=== PATIENT | male | born 1965 | race Caucasian/White ===

== ENCOUNTER 2025-03-12 18:07 | Inpatient (IN) | payer OTHER ==
[~2025-03-12] VITALS: Ht 177.8 cm; Wt 119.4 kg
[~2025-03-12 18:07] MED LIST: KETO10TA2 PO; ONDA-243 PO; OXYC-145 PO; TAMS-55 PO
[2025-03-12 19:31] LABS: BASOPHILS % (AUTO) 0.2 % (0-1); EOSINOPHILS % (AUTO) 0.1 % (0-6); HEMOGLOBIN 14.1 g/dl (14.0-17.9); LYMPHOCYTES # (AUTO) 0.7 X10'3 (1.1-4.8); LYMPHOCYTES % (AUTO) 6.2 % (21-51); MEAN CORPUSCULAR HEMOGLOBIN 29.9 PG (27.0-31.0); MEAN CORPUSCULAR HGB CONC 34.5 g/dL (33.0-36.5); MEAN CORPUSCULAR VOLUME 86.7 FL (78-98); MEAN PLATELET VOLUME 7.1 FL (7.4-10.4); MONOCYTES # (AUTO) 1.1 X10'3 (0-0.9); MONOCYTES % (AUTO) 9.4 % (2-12); NEUTROPHILS # (AUTO) 9.7 X10'3 (1.8-7.7); NEUTROPHILS % (AUTO) 84.1 % (42-75); PLATELET COUNT 255 X10'3 (140-440); RED BLOOD COUNT 4.73 X10'6 (4.70-6.10); WHITE BLOOD COUNT 11.6 X10'3 (4.5-11.0)
[2025-03-12 19:45] LABS: ALANINE AMINOTRANSFERASE 38 U/L (12-78); ALBUMIN/GLOBULIN RATIO 1.2 (1.1-1.5); ALKALINE PHOSPHATASE 96 IU/L (46-116); ANION GAP 9 (8-16); ASPARTATE AMINO TRANSFERASE 33 U/L (10-37); BILIRUBIN,TOTAL 0.7 MG/DL (0.1-1.0); BLOOD UREA NITROGEN 25 MG/DL (7-18); BUN/CREATININE RATIO 13.3 (10.0-20.0); CALCIUM 9.3 MG/DL (8.5-10.1); CHLORIDE 101 MMOL/L (99-107); CREATININE 1.88 MG/DL (0.60-1.10); GLUCOSE 115 MG/DL (70-104); LIPASE 21 U/L (16-77); POTASSIUM 4.6 MMOL/L (3.5-5.1); SODIUM 137 MMOL/L (135-145); TOTAL CARBON DIOXIDE 26.7 MMOL/L (24-32); TOTAL PROTEIN 7.3 G/DL (6.4-8.2); eCRCL 43 ML/MIN; eGFR 37 ML/MIN
--- NOTE | 2025-03-12 20:53 | Physician Documentation ---
History of Present Illness ~ Chief Complaint: Urinary Retention Stated Complaint: KIDNEY STONES Time Seen by MD: 22:10 OK to notify your PCP?: Yes Source: patient Mode of Arrival: POV Exam Limitations: no limitations HPI 59-year-old male presents with bilateral kidney stones. He states that he was seen at a hospital in [place] a few days ago and diagnosed with bilateral kidney stones 5 mm each. He has had a history of kidney stones in his usually able to pass them within 2 days but now it has been 4 days. He no longer is having pain up in his kidneys but he is experiencing some fevers and the pain is now wrapped around to his lower abdomen. He has increased his water intake and has been taking Flomax, and oxycodone but now feels like he is not able to urinate as well it is more like a few dribbles then a stream. He is feeling some bladder fullness and pressure as well. He denies any vomiting or nausea. History below obtained from Dr. Christensen: Chief Complaint: Left groin pain, unable to urinate Caveat: None Independent Historians: History of Present Illness: Patient is a 59-year-old man with a history of kidney stones. Patient started having some lower left and left groin pain Friday. he went to the emergency department in [place] he had a CT scan stating that he had a 5 mm stone in his mid ureter. He was placed on Flomax. Today pain returned and got worse in the left groin. Patient has also had some suprapubic discomfort. Patient despite drinking a lot of water today and taking Flomax has not been able to urinate very well. Patient states that his stream is extremely weak and he is unable to get the urine out. Patient denies any fever. Patient denies any upper abdominal pain. Patient denies any nausea vomiting diarrhea. Review of systems: All systems were reviewed and are negative except for what is indicated in the history of present illness. Past Medical History: HTN, kidney stones Past Surgical History: None Social History: , no tobacco use, no alcohol use, no drug use Medications: Reviewed as documented Nursing Notes Allergies: Reviewed as documented in Nursing Notes Medication Reconciliation Allergies: Coded Allergies: No Known Allergies (Unverified , 02/01/24) Scheduled Dupilumab (Dupixent), 1 SYR SUBCUT Q2W, (Reported) Lisinopril* (Lisinopril*), 1 TAB PO DAILY, (Reported) Tamsulosin Hcl* (Flomax*), 1 CAP PO DAILY Discontinued Medications Ketorolac Tromethamine (Ketorolac Tromethamine), 1 TAB PO Q8H Discontinued Reason: patient no longer taking ONDANSETRON ODT 4mg tablet (Ondansetron Odt), 1 TAB PO Q6H PRN PRN for nausea/vomiting Discontinued Reason: patient no longer taking Oxycodone HCl/Acetaminophen (Percocet 5-325 mg Tablet), 1 TAB PO TID PRN PRN for kidney stone Discontinued Reason: patient no longer taking Review of Systems All Other Systems at this time: Reviewed and Negative ROS Patient denies any other acute symptoms other than above. All other systems are negative Physical Exam Vital Signs: RN Vital Signs have been reviewed: Yes, Temperature: 98.2, Source: Oral, Heart Rate: 114, Respiratory Rate: 16, BP: 157/91, Pulse Oximetry: 97, Weight: 119.400 Oxygen Flow Rate: 0 Pulse Oximetry Reflects: adequate oxygenation Physical Exam General: Alert, no distress. HEENT: No injection, moist mucous membranes. Neck: Full range of motion. Respiratory: No respiratory distress, equal chest rise and fall. Chest: No accessory muscle use. Cardiovascular: Regular rate and rhythm. Gastrointestinal: Tenderness to palpation of right and left lower quadrant Extremities: Normal range of motion, no deformity. Back: no CVAT. Neurologic: Oriented x4. Psychiatric: Normal mood and affect. Skin: Normal color, warm and dry. Physical exam below by Dr. Christensen: General Appearance: No distress HEENT: Normal OP, moist oral mucosa, PERRL, EOMI Neck: supple, normal ROM, trachea midline Pulmonary: No respiratory distress, CTA, BS equal Cardiac: RRR, no murmur, rub or gallop, GI: nondistended, soft, nontender, normal bowel sounds, no guarding, no rebound : No suprapubic tenderness, no CVA tenderness Extremities: normal ROM, no swelling, non-tender Skin: intact, dry, warm, no rashes Neuro: AAOx3, speech is clear, no focal motor weakness Psych: normal affect, good eye contact, no apparent hallucination, normal speech Progress Results/Orders Results/Orders Orders - TERRY CHRISTENSEN MD * Bladder Scan / Post Residual (03/12/25 22:17) Page Hospitalist (03/12/25 23:23) Fill Out Med Reconciliation (03/12/25 23:23) Saline Lock (03/12/25 23:23) Completed Orders - TERRY CHRISTENSEN MD Normal Saline 1000ml (Sodium Chloride 10 (03/12/25 23:25) Medications Received in ER Medications (Trade) Dose Ordered Sig/Christos Route PRN Reason Start Time Stop Time Status Last Admin Dose Admin (Toradol inj. 30mg/ml) 30 mg ONCE ONCE IM 03/12/25 20:55 03/12/25 21:00 DC 03/12/25 21:27 30 MG (sodium chloride 1000ml IV soln) 1,000 ml ONCE ONCE IVB 03/12/25 23:25 03/12/25 23:26 DC 03/13/25 00:21 1,000 ML Sodium Chloride 1,000 ml @ 100 mls/hr Q10H IV 03/12/25 23:40 03/13/25 00:25 100 MLS/HR Vital Signs 03/12/25 03/12/25 03/12/25 03/12/25 18:08 21:26 21:27 21:30 Temp 98.2 Pulse 114 94 Resp 16 16 16 B/P (MAP) 157/91 144/81 (102) Pulse Ox 97 98 O2 Flow Rate 0 03/12/25 03/12/25 23:22 23:25 Pulse 69 Resp 16 16 B/P (MAP) 146/73 (97) Pulse Ox 98 O2 Flow Rate 0 Laboratory Tests Test 03/12/25 19:17 03/12/25 23:22 White Blood Count 11.6 H Red Blood Count 4.73 Hemoglobin 14.1 Hematocrit 41.0 L Mean Corpuscular Volume 86.7 Mean Corpuscular Hemoglobin 29.9 Mean Corpuscular Hemoglobin Concent 34.5 Red Cell Distribution Width 13.0 Platelet Count 255 Mean Platelet Volume 7.1 L Neutrophils (%) (Auto) 84.1 H Lymphocytes (%) (Auto) 6.2 L Monocytes (%) (Auto) 9.4 Eosinophils (%) (Auto) 0.1 Basophils (%) (Auto) 0.2 Neutrophils # (Auto) 9.7 H Lymphocytes # (Auto) 0.7 L Monocytes # (Auto) 1.1 H Eosinophils # (Auto) 0.0 Basophils # (Auto) 0.0 CBC Comment Sodium Level 137 Potassium Level 4.6 Chloride Level 101 Carbon Dioxide Level 26.7 Anion Gap 9 Blood Urea Nitrogen 25 H Creatinine 1.88 H Estimated GFR/1.73 m2 37 BUN/Creatinine Ratio 13.3 Glucose Level 115 H Hemoglobin A1c 5.3 Calcium Level 9.3 Total Bilirubin 0.7 Aspartate Amino Transf (AST/SGOT) 33 Alanine Aminotransferase (ALT/SGPT) 38 Alkaline Phosphatase 96 Total Protein 7.3 Albumin 4.0 Globulin 3.3 Albumin/Globulin Ratio 1.2 Lipase 21 Chemistry Comments Urine Specimen Description Urinal Urine Color Yellow Urine Clarity Clear Urine pH 6.0 Urine Specific [place] 1.015 Urine Protein Negative Urine Glucose (UA) Negative Urine Ketones Trace H Urine Occult Blood Negative Urine Nitrite Negative Urine Bilirubin Negative Urine Urobilinogen 0.2 Urine Leukocyte Esterase Negative Urine Culture Indicated Not ind Volume Urine Centrifuged 10 ml Urine Comment Medical Decision Making Findings Differential diagnosis includes but is not limited to: Obstructive uropathy, kidney stones, BPH, ureteral colic, acute kidney injury CT of abdomen and pelvis without IV contrast, indication: Kidney stones Impression: 1. Moderate left hydroureteronephrosis and mild perinephric inflammatory change secondary to a partially obstructing proximal ureteral calculus. Bilateral renal atrophy and multifocal cortical scarring and nonobstructive right nephrolithiasis noted. 2. Diverticulosis coli without CT evidence of acute diverticulitis. 3. Gallbladder sludge versus vicarious contrast excretion. 4. Prostatomegaly. Laboratory data independent interpretation: CBC: Unremarkable for mild leukocytosis of 11.6 CMP: Unremarkable except for an elevated creatinine of 1.88 which is thought to be acute. BUN is elevated at 25. Urinalysis: Unremarkable, no hematuria Emergency department course/medical decision-making: Patient presents with known urolithiasis and ureteral colic. Patient has evidence of hydroureter with some hydro nephrosis and an elevated creatinine of 1.88 which is thought to be acute. Patient has an obstructive uropathy. Obstruction is on the left ureter but also he has significant prostate hypertrophy and symptomatology consistent with prostate hypertrophy. Recommend admission and urological consultation. Test results and treatment plan discussed with the patient. Consultation/communications: Hospitalist aware of the patient for admission. Departure Time of Disposition: 23:21 Disposition: 09 ADMITTED INPATIENT Impression: Primary Impression: Urolithiasis Qualified Codes: N20.1 - Calculus of ureter Additional Impressions: Obstructive uropathy Hypertrophy of prostate with urinary obstruction Condition: Fair Education Educated: Patient, Family Educated regarding: diagnosis, treatment Additional Comment Medical Screen Exam This patient recieved a medical screening examination. After reviewing the individual's medical complaints with presenting symptoms and performing an appropriate physical examination, it was determined that no immediate life- threatening emergency medical condition is present. This individual is also not a women having contractions. Signature Scribe Signature: No scribe Attestation: No scribe KAVIN HUGGINS Mar 12, 2025 20:53 TERRY CHRISTENSEN MD Mar 12, 2025 22:22
[2025-03-12] MEDS: ketorolac trometh 30MG/ML vial 30 MG/ML VIAL IM ONE (21:27)
--- NOTE | 2025-03-12 23:15 | RADIOLOGY REPORT ---
Exam: CT CT ABDOMEN PELVIS History: kidney stones Comparison Study: CT CT ABDOMEN PELVIS on DOS: 02/01/24 Technique: Multidetector spiral CT of the abdomen was performed from lung bases to pubic symphysis. I maging was performed without IV contrast. Axial, coronal and sagittal multiplanar reformats were obta ined from the axial data set by the technologist. Radiation Dose : 1. Abdomen/Pelvis: CTDIvol 36.68 mGy, DLP 1861.04 mGy*cm. Findings: Evaluation of solid organs is limited due to lack of intravenous contrast use. Lung Bases: No acute or significant lung base finding. Normal heart size. No pleural or pericardial effusion. Liver: The liver is normal in size. No focal lesions. Gallbladder and Biliary Tree: Gallbladder sludge versus vicarious contrast excretion. Spleen: Unremarkable Pancreas: The pancreas is grossly normal in appearance. Adrenal Glands: Unremarkable Kidneys: Moderate bilateral renal cortical atrophy and multifocal cortical scarring. Moderate left hy dronephrosis and dilatation of the proximal ureter secondary to a partially obstructing 6 mm ureteral calculus. Mild left perinephric inflammatory change. Right renal cysts measure up to 7.0 cm. Nonobst ructing right inferior pole pelvocaliceal calculi measure up to 6 mm. Bladder: Grossly unremarkable for degree of distention. Bowel: Small hiatal hernia. The stomach is grossly normal in appearance. Small bowel and colon are no rmal in caliber and distribution. Diverticulosis coli without CT evidence of acute diverticulitis. Th e appendix is not visualized; however, no secondary findings of acute appendicitis identified. Ascites: Absent Lymphadenopathy: No mesenteric, retroperitoneal or periportal lymphadenopathy. Abdominal Wall and Mesentery: Unremarkable. Vasculature: The visualized abdominal aorta is normal in size and caliber. Atherosclerotic vascular c alcifications. Evaluation of abdominal and pelvic vessels is limited due to lack of intravenous contr ast. Pelvic Organs: The prostate is enlarged, measuring 5.8 cm transverse. Small bilateral fat containing inguinal hernias. Musculoskeletal: No aggressive focal bony lesions, acute fractures or dislocation. IMPRESSION: 1. Moderate left hydroureteronephrosis and mild perinephric inflammatory change secondary to a partia lly obstructing proximal ureteral calculus. Bilateral renal atrophy and multifocal cortical scarring and nonobstructive right nephrolithiasis noted. 2. Diverticulosis coli without CT evidence of acute diverticulitis. 3. Gallbladder sludge versus vicarious contrast excretion. 4. Prostatomegaly. Radiation optimization: All CT scans at this facility use at least one of these dose optimization joselito hniques: automated exposure control mA and/or kV adjustment per patient size (includes targeted exam s where dose is matched to clinical indication) or iterative reconstruction.
[2025-03-12 23:33] LABS: BILIRUBIN,URINE NEGATIVE (Neg); CLARITY,URINE CLEAR (Clear); COLOR,URINE YELLOW (Yellow); GLUCOSE, URINE NEGATIVE (Neg); KETONES,URINE TRACE mg/dl (Neg); LEUKOCYTE ESTERASE ,URINE NEGATIVE (Neg); NITRITES, URINE NEGATIVE (Neg); OCCULT BLOOD,URINE NEGATIVE (Neg); PROTEIN,URINE NEGATIVE (Neg); UA COLLECTION TYPE URINAL; UROBILINOGEN,URINE 0.2 E.U/dL (0.2-1.0)
[2025-03-12] MEDS ORDERED: HYDROmorphone inj. 0.5 MG/0.5 ML DISP.SYRIN IV PRN (23:40)
[2025-03-12] MEDS ORDERED: acetaminophen 325mg tablet PO PRN (23:40)
[2025-03-12] MEDS ORDERED: ondansetron/PF 4mg/2ml inj IV PRN (23:40)
[2025-03-12] MEDS ORDERED: HYDROmorphone/PF 0.2 MG/ML SYRINGE IV PRN (23:40)
[2025-03-12] MEDS ORDERED: magnesium Cl slow-release 64mg tablet PO PRN (23:40)
[2025-03-12] MEDS ORDERED: magnesium hydroxide 30ml (MOM) UD suspension PO PRN (23:40)
[2025-03-12] MEDS ORDERED: potassium Cl 20 mEq SR tablet PO PRN ×2 (23:40)
[2025-03-12] MEDS ORDERED: potassium Cl 40MEQ/1/2NS 520ml 520 ML IV PRN (23:40)
[2025-03-12] MEDS ORDERED: morphine 2 MG/ML inj. syringe IV PRN ×2 (23:40)
[2025-03-12] MEDS ORDERED: mag hydrox/Alum hydrox/simeth 30ml oral suspension PO PRN (23:40)
[2025-03-12] MEDS ORDERED: magnesium sulf-water 2g/50mL 50 ML IV PRN (23:40)
[2025-03-12] MEDS ORDERED: magnesium sulf-water 4G/100mL 100 ML IV PRN (23:40)
[2025-03-13 00:11] LABS: HEMOGLOBIN A1C 5.3 % (4.5-6.2)
--- NOTE | 2025-03-13 00:12 | RADIOLOGY REPORT ---
CHEST RADIOGRAPH Indication: Left hydroureteronephrosis, left ureteral calculi l Technique: Single frontal view of the chest was obtained COMPARISON: None FINDINGS: Lines and Tubes: None Lungs: Clear Pleura: No effusion. No pneumothorax. Cardiomediastinal contours: Unremarkable Bones: Unremarkable IMPRESSION: 1. No acute disease.
[2025-03-13] MEDS: normal saline 1000ML IV soln IVB ONE (00:21)
[2025-03-13] MEDS: normal saline 1000ml 1,000 ML IV SCH (00:25)
[2025-03-13] MEDS: CefTRIAXone/D5W-Rocephin 1gm 50 ML IV SCH (00:28)
[2025-03-13] MEDS ORDERED: LISI40TA13 PO (00:39)
[2025-03-13] MEDS ORDERED: DUPI300S SUBCUT (00:41)
--- NOTE | 2025-03-13 01:02 | HISTORY AND PHYSICAL-Residence ---
History & Physical Providers to CC Resident Creating Document: PERCY RIVERA, VAL ~ History of Present Illness Primary Medical Doctor: Dr. Marquez Reason for Admit\Complaint: Left hydronephrosis with left ureterolithiasis, FABIANA History of Present Illness 59-year-old male presents with past medical history of hypertension, nasal polyps, recurrent nephrolithiasis presented to the ER with a chief complaints of left lumbar pain. He states that he was seen at ER, [facility] in [place] a few days ago and diagnosed with bilateral kidney stones 5 mm each along with left ureterolithiasis and he was informed at [facility] that he needs urological procedure to retrieve the stone. He does reports his abdominal pain which was started on Friday night subsided now, near left lumbar region, radiating to left groin, colicky, it was initially. This is the fourth episode of renal/urinary tract colic. He complainied of fever, decreased water intake. He do reports some bladder fullness and pressure as well. He denied nausea, vomiting, diarrhea. He received Flomax in [place] ER. His urinary stream is extremely weak and is unable to get the urine out. Today pain returned and got worse in the left groin. Patient has also had some suprapubic discomfort. Patient despite drinking a lot of water today and taking Flomax has not been able to urinate very well. Discussed code status with the patient and patient wants to be full code Allergies: Coded Allergies: No Known Allergies (Unverified , 02/01/24) Home Medications Home Medications Active Flomax* (Tamsulosin HCl) 0.4 Mg Cap.sr.24h 1 Cap PO DAILY Reported Dupixent (Dupilumab) 300 Mg/2 Ml Syringe 1 Syr SUBCUT Q2W 28 Days Lisinopril* (Lisinopril) 40 Mg Tablet 1 Tab PO DAILY 30 Days Past Medical History Past Medical History Hypertension Nasal polyp Right hip osteoarthritis (orthopedic consultation pending for total hip replacement) Recurrent nephrolithiasis Past Surgical History Surgical History Comment Bilateral sinus surgery in 2014, 2016 Past Social History Social History Comment , no tobacco use, no alcohol use, no drug use Smoking: Non-Smoker Alcohol Use: None Drug Use: Marijuana Lives with: Spouse Lives In: Home Occupation: employed ROS All Other Systems: Reviewed and Negative ROS Reviewed in full and negative except for positive pertinent as in the HPI Exam Vitals: Vital Signs Date Time Temp Pulse Resp B/P (MAP) Pulse Ox O2 Delivery O2 Flow Rate FiO2 03/13/25 00:30 85 16 127/77 (94) 96 0 03/12/25 18:08 98.2 General: General Appearance: No distress HEENT: Normal OP, moist oral mucosa, PERRL, EOMI Neck: supple, normal ROM, trachea midline Pulmonary: No respiratory distress, CTA, BS equal Cardiac: RRR, no murmur, rub or gallop, GI: nondistended, soft, mild tenderness on left CVA, normal bowel sounds, no guarding, no rebound : No suprapubic tenderness, no CVA tenderness Extremities: normal ROM, no swelling, non-tender Skin: intact, dry, warm, no rashes Neuro: AAOx3, speech is clear, no focal motor weakness Psych: normal affect, good eye contact, no apparent hallucination, normal speech Diagnostic Data Last Recorded Lab Results: 03/12/25191603/12/251916 Advance Care Planning Advanced Care planning: Add on additional 30 min Additional Plan Recurrent Nephroureterolithiasis- Left hydroureteronephrosis likely 2/2 Left proximal ureterolithiasis with obstruction Right nephrolithiasis , nonobstructive Vitals are stable and blood pressures are in 140s White blood counts are elevated with a neutrophil preponderance. Ordered lactic acid and procalcitonin we will follow up the results. Serum creatinine is elevated. Differential diagnosis reconsider are Obstructive uropathy, kidney stones, BPH, ureteral colic, acute kidney injury CT of abdomen and pelvis without IV contrast, indication: Kidney stones Impression: 1. Moderate left hydroureteronephrosis and mild perinephric inflammatory change secondary to a partially obstructing proximal ureteral calculus. Bilateral renal atrophy and multifocal cortical scarring and nonobstructive right nephrolithiasis noted. 2. Diverticulosis coli without CT evidence of acute diverticulitis. 3. Gallbladder sludge versus vicarious contrast excretion. 4. Prostatomegaly. Received 2 L of IV normal saline on currently on 100 mL/hour normal saline On ceftriaxone 1 g daily dose Strain urine orders are placed. We will consult urologist in the a.m. for obstructive uropathy and FABIANA FABIANA Serum creatinine is elevated, 1.88 Received 2 L of IV normal saline and currently patient is on 100 mL/hour normal saline We will continue to monitor CMP Hypertension Blood pressure sudden 120s We will continue to monitor blood pressure within target of less than 130 Code status: Full code Diet: NPO DVT prophylaxis: SCDs PT: Ordered Prognosis: Guarded Percy Rivera IM resident I saw the patient with Dr Houston and discussed the case with him. I agree with assessment and plan as documented Date of Service: Mar 13, 2025 Billing Provider: LIAT MESSER MD, VENKATESH, [facility] Mar 13, 2025 01:02 LIAT MESSER MD Mar 13, 2025 07:54
[2025-03-13 01:50] VITALS: RESP 18; O2SAT 99
[2025-03-13 01:59] LABS: BASOPHILS % (AUTO) 0.3 % (0-1); EOSINOPHILS % (AUTO) 0.2 % (0-6); HEMATOCRIT 38.5 % (42.0-52.0); HEMOGLOBIN 13.4 g/dl (14.0-17.9); LYMPHOCYTES # (AUTO) 0.9 X10'3 (1.1-4.8); LYMPHOCYTES % (AUTO) 8.2 % (21-51); MEAN CORPUSCULAR HGB CONC 34.9 g/dL (33.0-36.5); MEAN PLATELET VOLUME 7.2 FL (7.4-10.4); MONOCYTES % (AUTO) 9.4 % (2-12); NEUTROPHILS # (AUTO) 8.6 X10'3 (1.8-7.7); NEUTROPHILS % (AUTO) 81.9 % (42-75); PLATELET COUNT 220 X10'3 (140-440); RED BLOOD COUNT 4.48 X10'6 (4.70-6.10); RED CELL DISTRIBUTION WIDTH 12.7 % (11.5-14.5); WHITE BLOOD COUNT 10.6 X10'3 (4.5-11.0)
[2025-03-13 02:00] VITALS: BP 121/63; PULSE 64; RESP 18; TEMP 98; O2SAT 99
[2025-03-13 02:13] LABS: APTT 24 SECONDS (22-32); INR 1.2 INR
[2025-03-13 02:15] LABS: ALANINE AMINOTRANSFERASE 36 U/L (12-78); ALBUMIN 3.5 G/DL (3.4-5.0); ALBUMIN/GLOBULIN RATIO 1.1 (1.1-1.5); ALKALINE PHOSPHATASE 88 IU/L (46-116); ANION GAP 7 (8-16); ASPARTATE AMINO TRANSFERASE 25 U/L (10-37); BILIRUBIN,TOTAL 0.7 MG/DL (0.1-1.0); BLOOD UREA NITROGEN 26 MG/DL (7-18); BUN/CREATININE RATIO 12.9 (10.0-20.0); CALCIUM 9.1 MG/DL (8.5-10.1); CHLORIDE 104 MMOL/L (99-107); CHOL/HDL RATIO 4.5 (0.00-4.99); CHOLESTEROL 194 MG/DL (0-200); CREATININE 2.02 MG/DL (0.60-1.10); GLUCOSE 112 MG/DL (70-104); HDL CHOLESTEROL 43 MG/DL (35-60); LDL CHOLESTEROL 124 MG/DL (50-100); MAGNESIUM 2.2 MG/DL (1.5-2.4); POTASSIUM 4.5 MMOL/L (3.5-5.1); SODIUM 137 MMOL/L (135-145); TOTAL CARBON DIOXIDE 26.5 MMOL/L (24-32); TOTAL PROTEIN 6.6 G/DL (6.4-8.2); TRIGLYCERIDES 81 MG/DL (20-135); eCRCL 40 ML/MIN; eGFR 34 ML/MIN
[2025-03-13] MEDS: normal saline 1000ml 1,000 ML IV ONE (04:04)
[2025-03-13 06:00] VITALS: BP 135/75; PULSE 80; RESP 18; TEMP 97.6; O2SAT 97
[2025-03-13 08:00] VITALS: RESP 18; O2SAT 97
[2025-03-13] MEDS: K and/or MAG REPLACEMENT MC SCH (08:00)
[2025-03-13] MEDS: docusate sod 100mg capsule PO SCH (08:00)
[2025-03-13] MEDS ORDERED: hydrALAZINE 20mg/ml inj. IV PRN (10:25)
--- NOTE | 2025-03-13 10:26 | PROGRESS NOTE ---
Daily Progress Note Providers to CC ~ Objective Vital Signs Date Time Temp Pulse Resp B/P (MAP) Pulse Ox O2 Delivery O2 Flow Rate FiO2 03/13/25 06:00 81 03/13/25 02:00 98.0 18 121/63 (82) 99 Room Air 03/13/25 00:30 0 Result Diagram: 03/13/25 0143 03/13/25 0143 Coagulation Studies Laboratory Tests Test 03/13/25 01:37 Prothrombin Time 12.0 SECONDS (9.0-12.0) INR International Normalized Ratio 1.2 INR Activated Partial Thromboplast Time 24 SECONDS (22-32) Coagulation Comments [facility] Mar 13, 2025 10:26
--- NOTE | 2025-03-13 11:24 | CONSULTATION ---
DATE OF CONSULTATION: 03/13/2025 DICTATING PHYSICIAN: Grey Minor MD HISTORY OF PRESENT ILLNESS: A 59-year-old male with a history of nephrolithiasis. He has had pain now for about 4 days on the left. He states he has had 3 or 4 stone episodes in his life, but he has never seen a stone pass. He was admitted last night for left flank pain and borderline elevated creatinine. He has oxycodone at home and has been taking Flomax. He was noticing diminishing urinary stream and came in for further evaluation. PAST SURGICAL HISTORY: None. PAST MEDICAL HISTORY: Nephrolithiasis and hypertension. ALLERGIES: None. MEDICATIONS: Flomax 0.4 mg p.o. at bedtime, lisinopril. SOCIAL HISTORY: He is . Denies tobacco use or alcohol use or drug use. He does use marijuana on occasion. REVIEW OF SYSTEMS: A 10-point review of systems is negative except for HPI. PHYSICAL EXAMINATION: VITAL SIGNS: Blood pressure is 127/77, respirations 16, pulse is 85, temperature 98.2. GENERAL: The patient is in no distress. LABORATORY DATA: White count is 10,000, hematocrit is 38%. BUN and creatinine are 25 and 1.9. Urinalysis is clear. IMAGING: CT scan shows a 4-5 mm stone in the left mid ureter at the pelvic brim causing mild hydroureteronephrosis. ASSESSMENT: Medium-sized stone in the mid left ureter resulting in some pain and borderline elevated creatinine. The patient has only mild pain and is considered reasonable candidate for conservative management as an outpatient with expulsive therapy. PLAN: Okay to DC home. Recommended to the patient that he take his Flomax b.i.d. Will follow up with me in 1 week with KUB prior. Grey Minor MD TID: [id number] RECEIPT: [id number] KARTHIK/CHLOÉ
[2025-03-13] MEDS: tamsulosin 0.4mg capsule PO ONE (13:16)
[2025-03-13] MEDS ORDERED: NOR5T PO (14:51)
[2025-03-13] MEDS ORDERED: TAMS-55 PO (14:54)
--- NOTE | 2025-03-13 15:10 | DISCHARGE SUMMARY ---
Discharge Summary Providers to CC ~ Discharge Summary Admission Diagnosis: LEFT HYDROURETERONEPHROSIS W/ LEFT URETERIC OBSTRUCTIVE CALCULI, FABIANA Hospital Course DATE OF ADMISSION: 03/12/25 DATE OF DISCHARGE: 03/13/25 Discharge Diagnosis\\Comment: Postrenal FABIANA 2/2 obstructive uropathy, likely prolonged Left hydroureteronephrosis 2/2 obstructing nephrolithiasis Pyelonephritis 2/2 nephrolithiasis Sepsis 2/2 pyelonephritis Hx recurrent nephroureterolithiasis Nephrolithiasis, right, nonobstructing Hypertension Operations\\Procedures: None Consultants: Urologist Grey Casas Complications: None Condition on DC: Stable New Medications: Amlodipine Besylate (Amlodipine Besylate) 5 Mg Tablet 1 TAB PO DAILY for 30 Days, #60 TAB 0 Refills Aspirin (Aspirin EC) 81 Mg Tablet.dr 1 TAB PO DAILY for 30 Days, #30 TAB Ciprofloxacin HCl (Ciprofloxacin HCl) 500 Mg Tab 1 TAB PO BID for 7 Days, #14 TAB Changed Medications: Tamsulosin Hcl* (Flomax*) 0.4 Mg Cap.sr.24h 1 CAP PO BID for 30 Days, #60 CAP (Changed from: DAILY; 10) Continued Medications: Dupilumab (Dupixent) 300 Mg/2 Ml Syringe 1 SYR SUBCUT Q2W for 28 Days, #4 ML 0 Refills Discontinued Medications: Lisinopril* (Lisinopril*) 40 Mg Tablet 1 TAB PO DAILY for 30 Days, #30 TAB Discharge Summary: History of Present Illness From H&P: "Jone Logan is a 59-year-old male presents with past medical history of hypertension, nasal polyps, recurrent nephrolithiasis presented to the ER with a chief complaints of left lumbar pain. He states that he was seen at ER, [facility] in [place] a few days ago and diagnosed with bilateral kidney stones 5 mm each along with left ureterolithiasis and he was informed at [facility] that he needs urological procedure to retrieve the stone. He does reports his abdominal pain which was started on Friday night subsided n ow, near left lumbar region, radiating to left groin, colicky, it was initially. This is the fourth episode of renal/urinary tract colic. He complainied of fever, decreased water intake. He reports some bladder fullness and pressure as well. He denied nausea, vomiting, diarrhea. He received Fl[facility]. His urinary stream is extremely weak and is unable to get the urine out. Today pain returned and got worse in the left groin. Patient has also had some suprapubic discomfort. Patient despite drinking a lot of water today and taking Flomax has not been able to urinate very well." Hospital Course Diagnostic findings were notable for abnormal kidney function without history of chronic kidney disease, tachycardia, CT indicating moderate left hydroureteronephrosis and mild perinephric inflammatory change secondary to a partially obstructing proximal ureteral calculus and bilateral renal atrophy and multifocal cortical scarring and nonobstructive right nephrolithiasis. Pertinent negative findings were normal lactic acid, negative procal, no fever, negative chest x-ray. Case was consulted with urologist Grey Casas who recommended awaiting to pass calculus. Patient is cleared from urology standpoint by Dr. Minor with close follow-up outpatient. Although, further monitoring of renal function was recommended from medical standpoint, patient verbalizes strong willingness to be discharged. Patient verbalized understanding of importance of immediate labs to be done upon discharge and stated he will return to ED for any worsening of condition. Patient was treated with empirical antibiotics, intravenous fluids, tamsulosin, and supportive care. Upon discharge, Patient will be discharged with empirical antibiotics and tamsulosin. Patient was seen and examined on the day of discharge. Patient did not experience further complications throughout the entire hospital stay and denies abdominal pain, lower back pain, nausea, vomiting, or dysuria. On day of discharge, vss, remains afebrile, renal function test reveals no significant changes from previous findings. Preliminary blood culture remains negative. All labs, diagnostic workups, discharge plan discussed with patient in details during visit before discharge. All questions and concerns answered to the best of my professional knowledge. Patient is to be discharged to home to self and to follow up with PCP and urologist Dr. Minor within 1 week. Physical Exam General: A&Ox 3, NAD HEENT: Normocephalic, PERRLA Neck: Supple, trachea midline, no JVD Chest: Clear to auscultation bilaterally Cardiovascular: RRR, S1&S2 GI: Soft and nontender Extremities: No cyanosis/clubbing/or edema WEEDER THINNER: CN II-XII intact, no focal deficits Musculoskeletal: No paraspinal muscle tenderness, no muscle spasm Skin: Warm and intact *Problems/Diagnosis: (1) Obstructive uropathy Status: Acute Total Time Spent on D/C: > 30 Minutes Date of Service: Mar 13, 2025 Billing Provider: CELESTINO DIAL Common Visit Codes: 30257-ZUG/OBS DISCH DAY >30min CELESTINO DIAL Mar 13, 2025 15:06
[2025-03-13] MEDS ORDERED: CIPR-202 PO (16:12)
[2025-03-13] MEDS ORDERED: ASPI81TA52 PO (16:12)
[2025-03-13] MEDS ORDERED: tamsulosin 0.4mg capsule PO SCH (21:00)
== END 2025-03-13 16:30 | disposition home or self-care (01) | DRG 872 ==
LOC: ER 18:08 → ED HOLD 23:48 → PCU 3S 03-13 01:54
PROVIDERS: ADMIT Internal Medicine; ATTEND Nurse Practitioner Family
DX: A41.9 Sepsis, unspecified organism (principal); N13.6 Pyonephrosis; N17.9 Acute kidney failure, unspecified; N26.1 Atrophy of kidney (terminal); N40.1 Benign prostatic hyperplasia with lower urinary tract symptoms; Z87.442 Personal history of urinary calculi; I10 Essential (primary) hypertension; Z79.899 Other long term (current) drug therapy
CPT/HCPCS: 36415; 71045; 74176; 80053; 80061; 81003; 83036; 83605; 83690; 83735; 84145; 85025; 85610; 85730; 87040; 96372; 99285; G0378; J0696; J1885; J7030